=== PATIENT | male | born 1985 | race Caucasian/White ===

== ENCOUNTER 2020-01-02 00:14 | Outpatient (CLI) | payer OTHER, SELFPAY ==
[2020-01-02 10:36] LABS: Abs Immature Grans 0.01 k/cumm (0.0-0.09); Absolute Basophil Count 0.03 k/cumm (0.0-0.2); Absolute Eosinophil Count 0.16 k/cumm (0.0-0.7); Absolute Lymphocyte Count 2.25 k/cumm (1.2-3.4); Absolute Monocyte Count 0.53 k/cumm (0.11-0.7); Absolute Neutrophil Count 3.79 k/cumm (1.2-6.7); Basophils % 0.4; Eosinophils % 2.4; HCT 40.5 % (40.0-50.0); HGB 13.2 g/dL (13.5-17.5); Immature Grans % 0.1 %; Lymphocytes % 33.2; Mean Corp. HGB Concentration 32.6 g/dL (32.0-36.0); Mean Corpuscular Hemoglobin 28.3 pg (27.0-33.0); Mean Corpuscular Volume 86.9 fL (80-95); Mean Platelet Volume 9.8 fL (8.0-11.0); Monocytes % 7.8; Neutrophils % 56.1; Platelet Count 324 x1000/uL (130-400); RBC 4.66 m/cumm (4.50-6.00); RBC Distribution Width 14.3 % (11.8-14.1); White Blood Cell Count 6.77 k/cumm (4.4-10.8)
[2020-01-02 11:06] LABS: ALT 128 U/L (16-63); AST 73 U/L (15-37); Albumin 4.2 g/dL (3.4-5.0); Alkaline Phosphatase 110 U/L (46-116); Anion Gap 6.3 mmol/L (3-11); BUN 15 mg/dL (7-18); Bilirubin, Total 0.3 mg/dL (0.2-1.0); CO2 31.7 mmol/L (21.0-32.0); CREATININE 1.06 mg/dL (0.70-1.30); Calcium 9.5 mg/dL (8.5-10.1); Chloride 105 mmol/L (98-107); Glucose 79 mg/dL (74-106); Potassium 5.2 mmol/L (3.5-5.1); Sodium 143 mmol/L (136-145); Total Protein 7.8 g/dL (6.4-8.2)
[2020-01-05 10:14] LABS: HBs Antibody, Quant 15.6 mIU/mL (See Note); Hepatitis B Surface Ab Positive (See Note); Hepatitis B Surface Ag Negative (Negative)
[2020-01-05 10:49] LABS: Hep B Core Antibody Negative (Negative)
[2020-01-05 11:20] LABS: HIV-1/2 Ag & Ab Screen Negative (Negative)
[2020-01-05 12:03] LABS: Hep A Total Ab w Rflx IgM Positive (Negative)
[2020-01-06 09:16] LABS: Hep A Antibody IgM Negative (Negative)
== END 2020-01-02 00:34 ==
PROVIDERS: PCP Nurse Practitioner Family; Visit Provider Nurse Practitioner Adult Health
DX: B19.20 Unspecified viral hepatitis C without hepatic coma (principal); Z11.4 Encounter for screening for human immunodeficiency virus [HIV]
CPT/HCPCS: 36415; 80053; 86704; 86706; 86709; 86803; 87340; 87389; 85025; 87350; 87522

== ENCOUNTER 2021-01-14 02:20 | Inpatient (IN) | payer MEDICAID, SELFPAY ==
[2021-01-14] VITALS (59 sets, daily range): BP systolic 89–139; BP diastolic 49–116; PULSE 62–97; RESP 2–70; TEMP 35.1–36.4; O2SAT 70–98
--- NOTE | 2021-01-14 02:15 | RT.EKG_ITS ---
APPROVED REPORT Exam: Resting ECG Patient Location: E HR:86 bpm ECG Measurements Heart Rate 86 AXIS MO 146 P 73 QRSd 97 QRS 85 QT 388 T 64 QTc 464 Conclusion Sinus rhythm...normal P axis, V-rate 60- 99 Normal Intervals Normal QT Normal Electrocardiogram
--- NOTE | 2021-01-14 02:22 | ED.GENADUL_ITS ---
Discharge Plan Disposition Patient Disposition: [facility] INPATIENT Condition: Serious Discharge Details Clinical Impression: Opiate or related narcotic overdose, Aspiration pneumonitis Primary Care Provider: Edith Balderas ED Provider: Daryn Oreilly Home Meds and New Rx's Prescriptions: No Action No Known Home Meds RF: 0 Medical Decision Making Patient presenting after overdose of presumed methadone but unknown true make up of ingestion. Was unresponsive and did respond to Narcan but is still altered and somewhat paranoid. Lungs sound clear. Unable to maintain saturations with nasal cannula oxygen. Facemask applied. Laboratory studies ordered. Head CT for altered mental status and CTA chest for persistent low O2 saturations ordered. Due to presumed overdose with methadone which has a very long half- life will start a Narcan drip at 2 mg/h and titrate to effect. EKG is sinus rhythm with normal intervals and normal QT segment. 03:45 - Patient at this time remains arousable to stimuli but is otherwise calm and sleeping with normal respiratory status. Currently maintaining 90% saturation on nonrebreather facemask. CT head is negative for bleed. CTA chest negative for PE. Evidence of bilateral infiltrates which would explain patient's oxygenation and is likely related to aspiration pneumonitis during his unresponsive event. Laboratory studies with minimally elevated white count, elevated glucose, anion gap; likely all related to stress reaction and unresponsive event. Suspect will normalize on on. Will keep him n.p.o. We will continue Narcan drip at 2 mg/h. Will dose with Unasyn in hopes to prevent bacterial pneumonia from setting in. Case discussed with hospitalist. Patient to be admitted to ICU for further management. Lab Data Lab results reviewed: Yes I reviewed the patient's lab results. ECG Data Attestation: I personally reviewed and interpreted this ECG (s) as follows: Prior ECG tracings: not available for review Interpretation: see EKG HPI General Mode of arrival: EMS . Date/Time Provider Initiated Documentation: 01/14/21 02:22 . Limitations to Documentation: altered mental status . Information obtained by: EMS . HPI Narrative: Patient presents to ED by EMS after overdose on methadone. Patient recently released from residential. Partying tonight with friends. Took unknown amount of drug that was supposed to be methadone. Became unresponsive on the ground with labored breathing and frothing at the mouth. By report, friend started CPR as well as administered 4 mg of Narcan intranasally. Upon EMS arrival patient was awake and semiconversant. Unable to obtain IV access. Was awake throughout transport but repeatedly needs to be stimulated. No further Narcan given. Oxygen saturations despite nasal cannula oxygen remained in the 70s. Heart rate and blood pressure were fine. Patient arrives here awake but altered. Does not appear to be in distress. Does not answer questions easily and is unable to provide much in terms of his own history. He does have a known history of drug abuse. Related Data Home Medications Medication Instructions Recorded Confirmed Unknown [No Known Home Meds] 10/18/13 01/14/21 Allergies Allergy/AdvReac Type Severity Reaction Status Date / Time No Known Allergies Allergy Unverified 01/14/21 02:28 General Stated Complaint: OD/Poison VIVIANA: 2 Review of Systems Unobtainable due to mental status [facility] Medical History (Updated 01/14/21 @ 03:48 by Daryn Oreilly MD) Drug abuse Hepatitis C virus Social History Smoking/Tobacco Use Status: Current every day Tobacco Type: cigarettes Smoking risk assessment performed?: Yes Alcohol Intake: current Alcohol Intake frequency: 0-2 drinks per day Drug use: Daily Substance use type: marijuana and prescription drug Do you feel safe at home: Yes Exam Narrative Exam Narrative: Const: WDWN male in NAD. HEENT: NC/AT. Normal facial exam. Eyes: Tiny minimally reactive pupils. Neck: Supple. Trachea midline. Lungs: Good respiratory effort. Lungs are clear. Cor: RRR without murmur/gallop. Good radial pulses. GI: Soft. NT/ND. No guarding or rebound. Neuro: A+O x 2. Normal speech, delayed mentation. Cranial nerves II - XII grossly intact. No gross motor or sensory deficit. Ext: No C/C/E. Skin: Warm and dry without rash. Course Vital Signs Vital signs: Vital Signs Temperature 97.5 F L 01/14/21 02:16 Pulse 89 01/14/21 02:16 Respiratory Rate 70 H 01/14/21 02:16 Blood Pressure 131/79 01/14/21 02:16 Pulse Oximetry 70 L 01/14/21 02:16 Temperature 97.5 F L 01/14/21 02:16 Temperature Source Skin 01/14/21 02:16 Pulse 89 01/14/21 02:16 Respiratory Rate 70 H 01/14/21 02:16 Blood Pressure 131/79 01/14/21 02:16 Pulse Oximetry 70 L 01/14/21 02:16 Critical Care Time Critical Care Time Critical Care Time: Yes Total Critical Care Time: 60 Attestation: Upon my evaluation, this patient had a high probability of imminent or life- threatening deterioration, which required my direct attention, intervention, and personal management. I have personally provided 60 minutes of critical care time exclusive of time spent on separately billable procedures. Time includes review of laboratory data, radiology results, discussion with consultants, and monitoring for potential decompensation. Interventions were performed as documented above.
[2021-01-14] MEDS: Normal Saline 1,000 ML 150 ML IV (02:32)
[2021-01-14 02:43] LABS: Source Nasal/Nares
[2021-01-14 02:51] LABS: Abs Immature Grans 0.29 10^3/uL (0.0-0.06); Absolute Eosinophil Count 0.02 10^3/uL (0.0-0.7); Absolute Lymphocyte Count 0.64 10^3/uL (1.2-3.4); Absolute Monocyte Count 0.16 10^3/uL (0.1-0.8); Basophils % 0.2; Eosinophils % 0.2; HCT 47.1 % (40.0-50.0); HGB 14.8 g/dL (13.5-17.5); Immature Grans % 2.4; Lymphocytes % 5.3; MCH 29.8 pg (27.0-33.0); MCHC 31.4 % (32.0-36.0); MCV 94.8 fL (80-95); MPV 10.5 fL (8.0-11.0); Monocytes % 1.3; Neutrophils % 90.6; Nucleated RBC 0 %; Platelet Count 235 10^3/uL (130-400); RBC 4.97 10^6/uL (4.36-5.78); RDW 14.5 % (11.8-14.1); RDW-SD 50.5 fL; WBC 12.01 10^3/uL (4.4-10.8)
[2021-01-14 02:52] LABS: Absolute Basophil Count 0.02 10^3/uL (0.0-0.2); Absolute Neutrophil Count 10.88 10^3/uL (1.2-6.7)
[2021-01-14 02:53] LABS: ALT 108 U/L (16-63); AST 83 U/L (15-37); Albumin 3.3 g/dL (3.4-5.0); Alkaline Phosphatase 104 U/L (46-116); Anion Gap 14.6 mmol/L (3-11); BUN 11 mg/dL (7-18); Bilirubin, Total 0.4 mg/dL (0.2-1.0); CO2 25.4 mmol/L (21.0-32.0); CREATININE 1.8 mg/dL (0.70-1.30); Calcium 8.4 mg/dL (8.5-10.1); Chloride 96 mmol/L (98-107); Estimated GFR 42.67 (mL/min/1.73m2); Glucose 359 mg/dL (74-106); Magnesium 2.6 mg/dL (1.8-2.4); Potassium 4.5 mmol/L (3.5-5.1); Sodium 136 mmol/L (136-145); Total Protein 7.7 g/dL (6.4-8.2)
[2021-01-14 03:02] LABS: ETHANOL BLOOD < 3.0 mg/dL (<3)
[2021-01-14] MEDS: Omnipaque 350 MG/ML 100 ML BTL IJ (03:19)
[2021-01-14] MEDS: Normal Saline Flush 10 ML SYR IVP (03:19)
[2021-01-14] MEDS: Normal Saline - Diluent 50 ML VIAL IV (03:19)
--- NOTE | 2021-01-14 03:20 | DI.CT_ITS ---
EXAM: CT HEAD WO CLINICAL HISTORY: altered mental status. TECHNIQUE: Imaging Protocol: Axial computed tomography images with coronal and sagittal reformatted images were created and reviewed COMPARISON: No exams were available for comparison FINDINGS: Ventricles and Extra axial spaces: Normal in size and morphology for the patient's age. Hemorrhage: None. Cerebral parenchyma: Normal. Midline shift: None. Brainstem/Cerebellum: Normal. Calvarium: Normal. Visualized Paranasal sinuses/Mastoids: Opacification of both maxillary sinuses and a few ethmoid sinu ses. Clear mastoids. Soft Tissues: Unremarkable. IMPRESSION: Sinus disease. No acute intracranial process. RADIATION DOSE DELIVERED: 767.03mGy.cm Total DLP DATA REPOSITORY: All CT scans at this facility are submitted to the National Radiology Data Registry (NRDR) Dose Index Registry (DIR) with the [employer] (ACR). RADIATION OPTIMIZATION: All CT scans at this facility use at least one of these dose optimization te chniques: automated exposure control; mA and/or kV adjustment per patient size (includes targeted exa ms where dose is matched to clinical indication); or iterative reconstruction.
--- NOTE | 2021-01-14 03:20 | DI.CT_ITS ---
EXAM: CT CHEST PE CTA CLINICAL HISTORY: low oxygen saturations. TECHNIQUE: Imaging Protocol: CT angiography of the chest was performed using pulmonary embolus mary alice col. Multi planar reconstructions were performed. CONTRAST MATERIAL: Intravenous: Omnipaque 350 Contrast volume: 74 cc COMPARISON: No exams were available for comparison FINDINGS: CHEST: Images are degraded by significant respiratory motion artifact. PULMONARY ARTERIES: There are no intraluminal filling defects to suggest acute pulmonary emboli. LUNGS: There is extensive infiltrate throughout the left lung involving all lobes. No pleural effusi on. In the opposite-right lung there is patchy infiltrate at multiple levels but with less overall i nvolvement than the left lung. There are no pleural effusions on either side. No obstructing findin gs in the trachea and mainstem bronchi. MEDIASTINUM: There is no hilar nor mediastinal adenopathy. Visualized thyroid unremarkable. CARDIAC: Heart size is normal. There is no pericardial effusion.Caliber of the thoracic aorta is wit hin normal limits. There is no evidence of shift of the interventricular septum. PARTIALLY VISUALIZED UPPERMOST ABDOMEN: Hepatic steatosis. No obvious adrenal masses. OSSEOUS: No significant osseous lesions.. IMPRESSION: 1. Extensive infiltrate throughout the left lung and moderate infiltrate throughout the right lung. Presently no cavitation.No pleural effusions. No intrathoracic adenopathy. Findings may be related to aspiration, given the history here. Also recommend Covid testing. 2. No pulmonary emboli evident. 3. Hepatic steatosis noted. RADIATION DOSE DELIVERED: LINK-TO-SR Total DLP DATA REPOSITORY: All CT scans at this facility are submitted to the National Radiology Data Registry (NRDR) Dose Index Registry (DIR) with the [employer] (ACR). RADIATION OPTIMIZATION: All CT scans at this facility use at least one of these dose optimization te chniques: automated exposure control; mA and/or kV adjustment per patient size (includes targeted exa ms where dose is matched to clinical indication); or iterative reconstruction.
--- NOTE | 2021-01-14 03:29 | DI.VRAD_ITS ---
PROCEDURE INFORMATION: Exam: CT Angiography Chest With Contrast Exam date and time: 01/14/2021 3:03 AM Age: 35 years old Clinical indication: Other: Low o2, AMS TECHNIQUE: Imaging protocol: Computed tomographic angiography of the chest with contrast. 3D rendering (Not supervised by radiologist): MIP and/or 3D reconstructed images were created by the technologist. Radiation optimization: All CT scans at this facility use at least one of these dose optimization techniques: automated exposure control; mA and/or kV adjustment per patient size (includes targeted exams where dose is matched to clinical indication); or iterative reconstruction. Contrast material: [id number]; Contrast volume: 74 ml; Contrast route: INTRAVENOUS (IV); COMPARISON: No relevant prior studies available. FINDINGS: Pulmonary arteries: No central or definite pulmonary embolus on study limited due to respiratory motion. Aorta: Unremarkable. No aortic aneurysm. No aortic dissection. Lungs: Moderate bilateral nonspecific pulmonary infiltrates, possibly of infectious etiology. Pleural spaces: Unremarkable. No pneumothorax. No pleural effusion. Heart: Unremarkable. No cardiomegaly. No pericardial effusion. Lymph nodes: Unremarkable. No enlarged lymph nodes. Liver: Hepatic steatosis. Bones/joints: Unremarkable. No acute fracture. Soft tissues: Unremarkable. IMPRESSION: Moderate bilateral nonspecific pulmonary infiltrates, possibly of infectious etiology. Dictated and Authenticated by: José Miguel Jim MD. Ordering:LAURIE Stearns MD
--- NOTE | 2021-01-14 03:32 | DI.VRAD_ITS ---
PROCEDURE INFORMATION: Exam: CT Head Without Contrast Exam date and time: 01/14/2021 2:28 AM Age: 35 years old Clinical indication: Alteration of consciousness; Somnolence (drowsiness); Additional info: Low o2, AMS TECHNIQUE: Imaging protocol: Computed tomography of the head without contrast. Radiation optimization: All CT scans at this facility use at least one of these dose optimization techniques: automated exposure control; mA and/or kV adjustment per patient size (includes targeted exams where dose is matched to clinical indication); or iterative reconstruction. COMPARISON: No relevant prior studies available. FINDINGS: Brain: Normal. No hemorrhage. Unremarkable white matter. No mass effect. Cerebral ventricles: No ventriculomegaly. Bones/joints: Unremarkable. No acute fracture. Paranasal sinuses: Bilateral maxillary sinus disease , clinically exclude acute sinusitis. Mastoid air cells: Visualized mastoid air cells are well aerated. Soft tissues: Unremarkable. IMPRESSION: 1. Bilateral maxillary sinus disease , clinically exclude acute sinusitis. 2. No acute intracranial finding. Dictated and Authenticated by: José Miguel Jim MD. Ordering:LAURIE Stearns MD
[2021-01-14] MEDS: AMPICILLIN/SULBACTAM 3 GM in Normal Saline 100 ML IVPB ×2 (03:55→10:25)
[2021-01-14 04:05] LABS: Salicylate 3.5 mg/dL (<2.8)
[2021-01-14 04:07] LABS: Acetaminophen < 2 ug/mL (10-30)
--- NOTE | 2021-01-14 05:27 | W.PM.HP.N ---
Date of service: 01/14/21 Time of Service: 05:27 Assessment and Plan Assessment and plan (1) Opiate or related narcotic overdose: Status: Acute Assessment and plan: Patient's history and presentation is very consistent with opioid overdose. In fact opioid overdose the setting of recent incarceration in a patient with previous tolerance is a common and predictable scenario. Fortunately he was resuscitated and is currently on naloxone drip and his mental status has improved since presentation. His hypothermia is common with opioid overdose, continue to monitor. He feels hot and is thus resistant to warming. UDS pending to confirm methadone and assess for other drugs. EKG is reassuring that he is not experiencing cardiac toxicity of methadone. Given loss of tolerance even relatively small doses of methadone could have caused this overdose, so we are unlikely to see the prolonged QT that we see with high dose methadone in opioid tolerant patients. Hyperglycemia likely related to stress hormones, get A1c if sugars staying high. His mental status is improving so I am going to let him eat. See below. (2) Aspiration pneumonitis: Status: Acute Assessment and plan: His lung findings may represent aspiration pneumonititis, I agree with covering with Amp/sulbactam as a precaution. I think we can discontinue this when he starts feeling better. The lung findings may also represent early ARDS, which can be a complication of rapid opioid reversal. His oxygenation seems to be improving already, however, so I am hopeful he will avoid this complication. (3) Drug abuse: Status: Acute Assessment and plan: Patient states he has a history of medically assisted treatment for opioid use disorder. He denies daily use since being released from incarceration in [place] 2 weeks ago. Medically assisted treatment in jails and prisons has been shown to decrease post-release overdose and , but is not offered in [place] as it is in [place] corrections. I encouraged Hipolito to consider medically assisted treatment as an option to stabilize his life and decrease risk of overdose. He isn't sure he needs it, but will consider. He should be at least given nasal narcan upon discharge and offered recovery coaching. (4) Hepatitis C virus: Status: Chronic Assessment and plan: Known chronic hepatitis C, with some transaminitis currently. No EtOH. I suggested he follow up with me to consider treatment upon discharge. I offered rescreening for HIV and HBV, which we will do with the next labs. (5) Acute kidney injury: Status: Acute Assessment and plan: In setting of hypoxia from opioid overdose. Multiple drug adulterants can also cause kidney damage. Will add CPK, though he was not down for a long time per history. Monitor. (6) Smoker: Status: Acute Assessment and plan: Declines NRT for now. encourage cessation intermediate. (7) DVT prophylaxis: Status: Acute Assessment and plan: LMWH until he is up and walking, at which point we can discontinue. (8) Discharge planning issues: Status: Acute Assessment and plan: He is ICU status on a naloxone drip. He is PUI for COVID-19 given cough and high risk exposure (has no history of known infection or vaccine). History of Present Illness History of Present Illness Chief Complaint: overdose Narrative: 35 yo man with history of opioid use disorder who was recently released from a correctional facility in [place] presented to ED by EMS after presumed overdose on methadone. Was partying tonight with friends and took unknown amount of drug that was supposed to be methadone. Became unresponsive on the ground with labored breathing and frothing at the mouth. By report, friend started CPR as well as administered 4 mg of Narcan intranasally. Upon EMS arrival patient was awake and semiconversant. Was awake throughout transport but repeatedly needs to be stimulated. No further Narcan given until he arrived in the ED, though oxygen saturations remained in the 70s until in the ED. Hipolito can now tell me he took liquid methadone about 10pm on the evening prior to admission. He denies using other substances. He drank the liquid. No snorting or injecting. He had used opioids 1-2 times since release about 2 weeks ago, not daily and not methadone until now. He had been treated with buprenorphine in past but not recently. He didn't knowingly take other medication like benzodiazepines. His last IVDU was about a year ago. He did not have any respiratory symptoms before this episode. Currently he feels hot and short of breath, with a dry cough that is worse with taking a deep breath. He doesn't feel withdrawal symptoms like body aches, abdominal cramps, nauesea, or diarrhea. Review of Systems Constitutional Constitutional: Denies anorexia (hungry), Denies body ache(s), Reports excessive sweating, Denies fever(s), Denies headache(s) and Denies weakness Eyes Eyes: Denies change in vision, Denies diplopia and Denies irritation ENT Ears, Nose, Mouth, and Throat: Denies dizziness, Denies headache(s), Denies nasal congestion and Denies sore throat Cardiovascular Cardiovascular: Denies chest pain, Denies palpitations and Denies orthopnea Respiratory Respiratory: Reports as per HPI, Reports cough, Reports hemoptysis (pink sputum per nursing), Denies excessive phlegm production and Reports pain with cough Gastrointestinal Gastrointestinal: Denies abdominal pain, Denies heartburn, Denies diarrhea, Denies loose stools, Denies nausea and Denies vomiting Genitourinary Genitourinary: Denies hematuria, Denies dysuria and Denies urinary incontinence Comments: hasn't urinated yet Musculoskeletal Musculoskeletal: Denies arthralgias and Denies joint swelling Integumentary/Breasts Skin/Breast: Denies rash and Denies skin ulcer Neurologic Neurologic: Denies dizziness, Denies headache(s), Denies seizure-like activity, Denies sensory deficit and Denies weakness Psychiatric Psychiatric: Denies mood swings and Denies panic attacks Endocrine Endocrine: Reports excessive sweating and Denies palpitations Hematologic/Lymphatic Hematologic/Lymphatic: Denies easy bleeding and Denies lymphadenopathy ON LICENSE OF [facility] Medical History Drug abuse Hepatitis C virus Social History (Updated 01/14/21 @ 06:33 by Mariusz Matos) Smoking/Tobacco Use Status: Current every day Tobacco Type: cigarettes Smoking risk assessment performed?: Yes Alcohol Intake: current Alcohol Intake frequency: 0-2 drinks per day Details: none prior to admission Drug use: Daily Substance use type: marijuana and prescription drug Do you feel safe at home: Yes Additional Social history: living with a friend in [facility] since being released from corrections in [place] in early December 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 Meds Home Medications and Allergies Allergies Allergy/AdvReac Type Severity Reaction Status Date / Time No Known Allergies Allergy Unverified 01/14/21 02:28 Home Medications Medication Instructions Recorded Confirmed Type Unknown [No Known Home Meds] 10/18/13 01/14/21 History Exam Narrative Exam Narrative: GEN: Alert and oriented x 3, pleasent and cooperative with me, though appears anxious. He was able to give linear history before overdose. Mild respiratory distress at rest. HEENT: Head atraumatic. Conjunctiva clear, no icterus. Pupils currently 4-5mm in dark room, reactive shar, EOMI. Mild rhinorrhea and frequent sneezing. MMM, OP benign but he has several large dental caries. Neck is supple with no masses or lymphadenopathy, trachea midline LUNGS: Diffusely poor air movement, mild increase respiratory effort even lying in bed, dry cough. No focal rales or wheezing. CV: RRR with no murmurs, gallops, or rubs. ABD: +BS, soft, NT/ND. no organomegaly EXT: no cyanosis, clubbing, or edema. Leg not tender to palpation. MSK: No joint redness or swelling NEURO: CN 2-12 grossly intact. Normal movement of 4 extremities. Normal speech and coordination SKIN: Skin clammy and warm, feet a little cooler. No rashs or open wounds. PSYCH: mildly anxious mood and affect, normal thought process, no hallucinations evident. Results Imaging CT scan - chest: report reviewed (Moderate bilateral nonspecific pulmonary infiltrates, possibly of infectious etiology.) Imaging Studies: CT Head w/o contrast: 1. Bilateral maxillary sinus disease , clinically exclude acute sinusitis. 2. No acute intracranial finding. Labs Result diagrams: 01/14/21 02:20 01/14/21 02:20 Labs: Laboratory Results - last 24 hr 01/14/21 01/14/21 01/14/21 02:20 02:20 02:20 WBC 12.01 H RBC 4.97 Hgb 14.8 Hct 47.1 MCV 94.8 MCH 29.8 MCHC 31.4 L RDW 14.5 H Plt Count 235 MPV 10.5 Immature Gran % 2.4 Neutrophils % 90.6 Lymphocytes % 5.3 Monocytes % 1.3 Eosinophils % 0.2 Basophils % 0.2 Nucleated RBC % 0 Absolute Neutrophils 10.88 H Absolute Lymphocytes 0.64 L Absolute Monocytes 0.16 Absolute Eosinophils 0.02 Absolute Basophils 0.02 Sodium 136 Potassium 4.5 Chloride 96 L Carbon Dioxide 25.4 Anion Gap 14.6 H BUN 11 Creatinine 1.8 H Estimated GFR/1.73 m2 42.67 Glucose 359 H Calcium 8.4 L Magnesium 2.6 H Total Bilirubin 0.4 AST 83 H ALT 108 H Alkaline Phosphatase 104 Total Protein 7.7 Albumin 3.3 L Salicylates Acetaminophen Ethyl Alcohol < 3.0 COVID-19 Source 01/14/21 01/14/21 02:20 02:25 WBC RBC Hgb Hct MCV MCH MCHC RDW Plt Count MPV Immature Gran % Neutrophils % Lymphocytes % Monocytes % Eosinophils % Basophils % Nucleated RBC % Absolute Neutrophils Absolute Lymphocytes Absolute Monocytes Absolute Eosinophils Absolute Basophils Sodium Potassium Chloride Carbon Dioxide Anion Gap BUN Creatinine Estimated GFR/1.73 m2 Glucose Calcium Magnesium Total Bilirubin AST ALT Alkaline Phosphatase Total Protein Albumin Salicylates 3.5 Acetaminophen < 2 Ethyl Alcohol COVID-19 Source Nasal/nares Last Vital Signs Temp 36.4 C L 01/14/21 02:16 Pulse 74 01/14/21 04:46 Resp 30 H 01/14/21 04:46 BP 98/56 L 01/14/21 04:46 Pulse Ox 95 01/14/21 04:46 COVID- Screening Have you, or household traveled for leisure in last 14 days?: No
[2021-01-14 06:56] LABS: *AMPHETAMINES SCREEN URINE Negative (Negative); *BARBITURATES SCREEN URINE Negative (Negative); *BENZODIAZEPINES SCREEN URINE Negative (Negative); Cannabinoids THC POSITIVE (Negative); Cocaine Screen,Urine Negative (Negative); METHADONE URINE SCREEN POSITIVE (Negative); OPIATES URINE SCREEN Negative (Negative)
[2021-01-14 06:57] LABS: Tricyclic Antidepressants Negative (Negative)
[2021-01-14] MEDS: Enoxaparin 40 MG/0.4 ML SYR SC (08:10)
[2021-01-14 10:26] LABS: COVID-19 PCR Negative (Negative)
[2021-01-14 10:34] LABS: COVID-19 PCR Negative (Negative)
[2021-01-14] MEDS: Albuterol 2.5 MG/3 ML INH SOLN VIAL UPD ×2 (11:02→14:50)
--- NOTE | 2021-01-14 11:16 | INITIAL_ITS ---
- If Service Date Differs Date of service: 01/14/21 Time of Service: 11:16 Care Management Initial Assess REASON FOR HOSPITALIZATION:: Narcotic overdose amd aspiration pneumonia PAST MEDICAL HISTORY/PAST SURGICAL HISTORY:: Medical History . Drug abuse. Hepatitis C virus PREVIOUS FUNCTIONAL STATUS/SOCIAL/FAMILY SUPPORTS:: Basil lives in [place], [place]. CURRENT FUNCTIONAL STATUS:: Basil was sitting up in bed preparing to be discharged when CM met with him. He denied the need for any services. Basil shared that he had just gotten out of long term and celebrated [facility] [facility] Day by taking drugs. He admitted that it was a poor decision and not to be repeated. ADVANCE DIRECTIVES:: none on file Has patient been provided with info about the portal/API?: Yes Did the patient sign up for the portal?: No CODE STATUS:: Full Code INSURANCE COVERAGE / FINANCIAL ISSUES:: Medicaid CURRENT HOME/COMMUNITY SERVICES/EQUIPMENT:: none PRIMARY CARE PHYSICIAN:: Edith Balderas POTENTIAL DISCHARGE NEEDS:: Follow up with PCP and discharge plan of care PATIENT/FAMILY EDUCATION NEEDS:: Discharge plan, limitations, follow up plan [facility] [employer] TRANSPORTATION:: via private vehicle with friend/family member PLAN:: Basil will be discharged home with no services. He will follow up with community providers and transport with a friend.
[2021-01-14] MEDS: methylPREDNISolone SUCC 125 MG VIAL 60 MG IVP (11:56)
[2021-01-14 14:02] LABS: Creatine Kinase 285 U/L (39-308)
--- NOTE | 2021-01-14 14:44 | DSE_ITS ---
Date of service: 01/14/21 Time of Service: 14:46 DS: Diagnosis Discharge Diagnosis (1) Opiate or related narcotic overdose: Status: Acute (2) Aspiration pneumonitis: Status: Acute (3) Drug abuse: Status: Acute (4) Hepatitis C virus: Status: Chronic (5) Acute kidney injury: Status: Acute (6) Smoker: Status: Acute (7) DVT prophylaxis: Status: Acute (8) Discharge planning issues: Status: Acute Discharge Plan Disposition Patient Disposition: HOME Condition: Improving Discharge Details Reason For Visit: OPIATE OVERDOSE; ASPIRATION PNEUMONITIS Admit Date/Time: 01/14/21 03:41 Admit Provider: Mariusz Matos Attending Provider: Mariusz Matos [facility] Hospital Course: 35 yo man with history of opioid use disorder who was recently released from a correctional facility in [place]. He presented to ED by EMS after presumed overdose on methadone. Was partying with friends and took unknown amount of drug that was supposed to be methadone. He believes it was 80mg. Became unresponsive on the ground with labored breathing and frothing at the mouth. By report, friend started CPR as well as administered 4 mg of Narcan intranasally. Upon EMS arrival patient was awake and semiconversant. Was awake throughout transport but repeatedly needs to be stimulated. No further Narcan given until he arrived in the ED, though oxygen saturations remained in the 70s until in the ED. He was later able to tell the admitting hospitalist that he took liquid methadone about 10pm on the evening prior to admission. He believes it was 80mg but wasn't certain. He denied using other substances. He drank the liquid. No snorting or injecting. He had used opioids 1-2 times since release about 2 weeks ago, not daily and not methadone until now. He had been treated with buprenorphine in past but not recently. He didn't knowingly take other medication like benzodiazepines. His last IVDU was about a year ago. He did not have any respiratory symptoms before this episode. His WBC count was 12.01. creatinine 1.8. IV fluids given. Glucose 359. AST 83, ALT 108. CK 285. CT head w/o acute findings. CT chest with moderate bilateral nonspecific pulmonary infiltrates. At time of admission to the ICU he felt hot and short of breath, with a dry cough that is worse with taking a deep breath. No withdrawal symptoms like body aches, abdominal cramps, nausea, or diarrhea. EKG was reassuring. Overnight he remained on a Narcan drip. He was started on IV Unasyn for aspiration pneumonitis. The following AM he became more awake and alert and the Narcan drip was stopped. His respiratory status improved. He was given a dose of 60mg IV methylprednisolone. He was weaned from supplemental oxygen. His O2 saturations remained above 88%; Mostly in the low 90's with rest and ambulation. Fingerstick blood glucose of 155 before d/c; had received IV solumedrol several hours prior to this reading. He will d/c on prednisone 20mg daily for 5 doses. Augmentin 875mg po BID for 7 days. Avoidance of illicit use of drugs and smoking cessation encouraged. PCP follow up in 1-2 weeks. Home Meds and New Rx's Prescriptions: New amoxicillin-pot clavulanate [Augmentin] 875-125 mg tablet 1 tab PO BID Qty: 10 RF: 0 prednisone 20 mg tablet 20 mg PO DAILY Qty: 5 RF: 0 Discharge Instructions Instructions: Pneumonia (DC) Stand Alone Forms: Nursing Discharge Form Referrals: Mariusz Matos [ [facility] STAFF PHYSICIAN] - 01/24/21 11:40 am Activity:: Activity as Tolerated Equipment/Supplies:: No Equipment Needed Diet:: Normal Diet Discharge Orders Discharge Orders: Discharge Order (Routine); Ordered 01/14/21 Ordered By: Carlitos Choe DS: Summary Time Spent with Patient providing and/or coordinating discharge services: Greater than 30 minutes Status at Discharge Functional status at discharge: independent ambulation Overall status at discharge: patient is progressing back to baseline Mental Status: mental status grossly normal Speech and Movement: speech and movement normal Mood: congruent mood Affect: blunted Exam Psych Mental Status: mental status grossly normal Speech and Movement: speech and movement normal Mood: congruent mood Affect: blunted DS: Data Vitals/I&O Vitals and I&O: Vital Signs Temperature 36 C L 01/14/21 14:31 Temperature Source Temporal Artery Scan 01/14/21 11:43 Pulse 94 H 01/14/21 14:31 Pulse 62 01/14/21 14:20 Respiratory Rate 19 01/14/21 14:31 Respiratory Effort 01/14/21 11:43 Respiratory Depth Shallow 01/14/21 11:43 Respiratory Pattern Normal 01/14/21 11:43 Blood Pressure 100/70 01/14/21 14:31 Blood Pressure Mean 74 01/14/21 11:38 Blood Pressure Position Supine 01/14/21 07:45 Pulse Oximetry 97 01/14/21 14:31 Oxygen Delivery Method Nasal Cannula 01/14/21 11:43 Oxygen Flow Rate 0 01/14/21 11:43 Pain Level 0 01/14/21 14:31 Comment 01/14/21 14:31 Intake & Output 01/13/21 01/14/21 01/14/21 23:59 11:59 23:59 Intake Total 1301.333 / 1301.333 Output Total 500 / 500 Balance 801.333 / 801.333 Weight 76.8 kg Intake: IV 961.333 / 961.333 Oral 340 / 340 Output: Urine 500 / 500 Other: Urine Color Light Ame Urine Appearance Clear Urine Odor Strong Comment No void at this time. Data Completed and Pending Labs on day of discharge: Labs from last 24 hours 01/14/21 01/14/21 01/14/21 Unknown 12:20 09:42 WBC RBC Hgb Hct MCV MCH MCHC RDW Plt Count MPV Immature Gran % Neutrophils % Lymphocytes % Monocytes % Eosinophils % Basophils % Nucleated RBC % Absolute Neutrophils Absolute Lymphocytes Absolute Monocytes Absolute Eosinophils Absolute Basophils Sodium Potassium Chloride Carbon Dioxide Anion Gap BUN Creatinine Estimated GFR/1.73 m2 Glucose Calcium Magnesium Total Bilirubin AST ALT Alkaline Phosphatase Creatine Kinase 285 Total Protein Albumin Salicylates Urine Opiates Screen Urine Methadone Screen Acetaminophen Ur Barbiturates Screen Ur Tricyclics Screen Ur Amphetamines Screen U Benzodiazepines Scrn Urine Cocaine Screen Ur THC Screen Ethyl Alcohol COVID-19 Source Nasopharyx SARS-CoV-2 (PCR) Negative Hep Bs Antigen HIV 1&2 Ag/Ab, 4th Gen Pending 01/14/21 01/14/21 01/14/21 06:39 06:15 02:25 WBC RBC Hgb Hct MCV MCH MCHC RDW Plt Count MPV Immature Gran % Neutrophils % Lymphocytes % Monocytes % Eosinophils % Basophils % Nucleated RBC % Absolute Neutrophils Absolute Lymphocytes Absolute Monocytes Absolute Eosinophils Absolute Basophils Sodium Potassium Chloride Carbon Dioxide Anion Gap BUN Creatinine Estimated GFR/1.73 m2 Glucose Calcium Magnesium Total Bilirubin AST ALT Alkaline Phosphatase Creatine Kinase Total Protein Albumin Salicylates Urine Opiates Screen Negative Urine Methadone Screen Positive A Acetaminophen Ur Barbiturates Screen Negative Ur Tricyclics Screen Negative Ur Amphetamines Screen Negative U Benzodiazepines Scrn Negative Urine Cocaine Screen Negative Ur THC Screen Positive A Ethyl Alcohol COVID-19 Source Nasal/nares SARS-CoV-2 (PCR) Negative Hep Bs Antigen Pending HIV 1&2 Ag/Ab, 4th Gen 01/14/21 01/14/21 01/14/21 02:20 02:20 02:20 WBC 12.01 H RBC 4.97 Hgb 14.8 Hct 47.1 MCV 94.8 MCH 29.8 MCHC 31.4 L RDW 14.5 H Plt Count 235 MPV 10.5 Immature Gran % 2.4 Neutrophils % 90.6 Lymphocytes % 5.3 Monocytes % 1.3 Eosinophils % 0.2 Basophils % 0.2 Nucleated RBC % 0 Absolute Neutrophils 10.88 H Absolute Lymphocytes 0.64 L Absolute Monocytes 0.16 Absolute Eosinophils 0.02 Absolute Basophils 0.02 Sodium Potassium Chloride Carbon Dioxide Anion Gap BUN Creatinine Estimated GFR/1.73 m2 Glucose Calcium Magnesium Total Bilirubin AST ALT Alkaline Phosphatase Creatine Kinase Total Protein Albumin Salicylates 3.5 Urine Opiates Screen Urine Methadone Screen Acetaminophen < 2 Ur Barbiturates Screen Ur Tricyclics Screen Ur Amphetamines Screen U Benzodiazepines Scrn Urine Cocaine Screen Ur THC Screen Ethyl Alcohol < 3.0 COVID-19 Source SARS-CoV-2 (PCR) Hep Bs Antigen HIV 1&2 Ag/Ab, 4th Gen 01/14/21 02:20 WBC RBC Hgb Hct MCV MCH MCHC RDW Plt Count MPV Immature Gran % Neutrophils % Lymphocytes % Monocytes % Eosinophils % Basophils % Nucleated RBC % Absolute Neutrophils Absolute Lymphocytes Absolute Monocytes Absolute Eosinophils Absolute Basophils Sodium 136 Potassium 4.5 Chloride 96 L Carbon Dioxide 25.4 Anion Gap 14.6 H BUN 11 Creatinine 1.8 H Estimated GFR/1.73 m2 42.67 Glucose 359 H Calcium 8.4 L Magnesium 2.6 H Total Bilirubin 0.4 AST 83 H ALT 108 H Alkaline Phosphatase 104 Creatine Kinase Total Protein 7.7 Albumin 3.3 L Salicylates Urine Opiates Screen Urine Methadone Screen Acetaminophen Ur Barbiturates Screen Ur Tricyclics Screen Ur Amphetamines Screen U Benzodiazepines Scrn Urine Cocaine Screen Ur THC Screen Ethyl Alcohol COVID-19 Source SARS-CoV-2 (PCR) Hep Bs Antigen HIV 1&2 Ag/Ab, 4th Gen [facility] Medical History Drug abuse Hepatitis C virus Social History Smoking/Tobacco Use Status: Current every day Tobacco Type: cigarettes Smoking risk assessment performed?: Yes Alcohol Intake: current Alcohol Intake frequency: 0-2 drinks per day Details: none prior to admission Drug use: Daily Substance use type: marijuana and prescription drug Do you feel safe at home: Yes Additional Social history: living with a friend in [facility] since being released from corrections in [place] in early December 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
--- NOTE | 2021-01-14 17:21 | PDOC.CMDIS ---
- If Service Date Differs Date of service: 01/14/21 Time of Service: 17:21 LACE Index Scoring Tool - Questions: Length of Stay (in days): 1 Acuity (Admit via E.D.?): Yes E.D. Visits: 1 - Answers: Total Score: 5 Risk of Readmission: Low Risk Care Management Discharge Reason for Hospitalization: Narcotic overdose amd aspiration pneumonia Discharge Plan: Basil will be discharged home with no services. He will follow up with community providers and transport with a friend. Patient/Family Education Needs: Discharge plan, limitations, follow up plan Ask Me Three
[2021-01-17 11:12] LABS: Hepatitis B Surface Ag Negative (Negative)
[2021-01-17 11:35] LABS: HIV-1/2 Ag & Ab Screen Negative (Negative)
== END 2021-01-14 15:37 | disposition home or self-care (01) | DRG 917 ==
LOC: ER 03:58 → ICU 04:23
PROVIDERS: Family Medicine; Admitting Provider Family Medicine; Emergency Provider Emergency Medicine; PCP Nurse Practitioner Family; Visit Provider Family Medicine
DX: T40.601A Poisoning by unspecified narcotics, accidental (unintentional), initial encounter (principal); J69.0 Pneumonitis due to inhalation of food and vomit; N17.9 Acute kidney failure, unspecified; F17.210 Nicotine dependence, cigarettes, uncomplicated; F19.10 Other psychoactive substance abuse, uncomplicated; B18.2 Chronic viral hepatitis C
CPT/HCPCS: 36415; 71275; 80053; 80307; 82550; 87340; 87389; 87635; 93005; 96361; 96365; 96375; 99223; 99239; 99291; J1650; 70450; 80320; 80329; 83735; 85025; 93010; 94640; J0295; J2310; J2930; J3490; J7613

== ENCOUNTER 2021-11-26 09:24 | Emergency (ER) | payer MEDICAID, SELFPAY ==
[2021-11-26] VITALS (16 sets, daily range): BP systolic 132–164; BP diastolic 74–96; PULSE 40–74; RESP 16–31; TEMP 36.9–37.2; O2SAT 98–100
--- NOTE | 2021-11-26 10:00 | RT.EKG_ITS ---
APPROVED REPORT Exam: Resting ECG Reason for Exam: bradycardia Patient Location: E HR:56 bpm ECG Measurements Heart Rate 56 AXIS WA 164 P 72 QRSd 97 QRS 82 QT 419 T 82 QTc 400 Conclusion Sinus bradycardia...rate< 60 Atrial premature complex...SV complex w/ short R-R interval
--- NOTE | 2021-11-26 10:27 | ED.GENADUL_ITS ---
Discharge Plan Disposition Patient Disposition: HOME Condition: Stable Discharge Details Clinical Impression: COVID-19, Opioid withdrawal, Bradycardia Primary Care Provider: Edith Balderas ED Provider: Lorenzo Tucker Home Meds and New Rx's Prescriptions: No Action No Known Home Meds RF: 0 Discharge Instructions Instructions: COVID-19 (Coronavirus Disease 2019) (ED) Additional Instructions: You are Covid positive and per recent CDC guidelines you should remain quarantine as long as you are symptomatic. If after 5 days you are asymptomatic you may stop quarantine but should wear a mask at all times when around others. Please stay well-hydrated and get plenty of rest and if you become short of breath, have difficulty breathing, or severe worsening of symptoms feel free to return to the emergency department. It was noted today at rest and you become bradycardic. At this time your labs and work-up are otherwise unremarkable but if you become symptomatic (which includes lightheadedness, dizziness, fainting, or irregular heartbeat) please return immediately to the emergency department for reassessment. Discharge Data Discharge Date/Time-TO BE ENTERED AT DEPARTURE: 11/26/21 15:26 Medical Decision Making Patient presenting to the emergency department with nausea vomiting and loose stools that has been going on for 2 days. Patient states that he last had methadone 3 weeks ago and last had heroin 2 days ago. Patient denies chest pain, shortness of breath, cough or fever but does state significant chills. Patient is unvaccinated and denies any known contact with known positive Covid. Plan to check labs given patient's reported homelessness and symptoms with concern of possible dehydration. Cows score for Opiate withdrawl is 10=mild withdrawl. Patient was bradycardic at arrival is not Hypothermic, denies any symptoms consistent with bradycardia, denies any other medication use, and with activity patient does have heart rate that returns to -70s to 80s. EKG reviewed with attending physician and please see documented dictation for results sinus bradycardia with otherwise nondiagnostic Review of labs is nonworrisome and otherwise nondiagnostic for patient's complaint. Of notation is that patient is mildly anemic but has had similar results in the past. Patient is Covid positive which I feel is a bigger contributor to patient's symptoms then withdrawal. Given patient's homelessness and Covid positive I did make multiple attempts with care management plan state 211 services to find alternative housing for patient but unfortunate was unsuccessful due to patient's transportation issues and only available motel is in [place]. Patient states that he does not haveanyone that can help. Given that patient is otherwise stable with no worrisome findings I do feel that he is safe for discharge and outpatient therapy but did discuss return precautions given that he has Covid positive and at high risk for severe illness given homelessness and unvaccinated status. Patient reports to me that he does not really want to restart methadone and may go back to [facility] with fianc? but is unsure. livestock judging coach was contacted during visit and did discuss possible recovery resources with patient. After discussion of diagnosis and plan of care patient has no further needs, questions, or concerns and states clear understanding to return to the emergency department for any worsening symptoms. Lab Data Lab results reviewed: Yes I reviewed the patient's lab results. Labs: Laboratory Tests Range/Units 11/26/21 11/26/21 11/26/21 10:15 10:50 10:50 WBC (4.4-10.8) 10^3/uL 8.90 RBC (4.36-5.78) 10^6/uL 4.95 Hgb (13.5-17.5) g/dL 13.4 L Hct (40.0-50.0) % 42.5 MCV (80-95) fL 85.9 MCH (27.0-33.0) pg 27.1 MCHC (32.0-36.0) % 31.5 L RDW (11.8-14.1) % 14.7 H Plt Count (130-400) 10^3/uL 412 H MPV (8.0-11.0) fL 10.0 Immature Gran % 0.3 Neutrophils % 83.1 Lymphocytes % 13.6 Monocytes % 2.9 Eosinophils % 0.0 Basophils % 0.1 Nucleated RBC % % 0 Absolute Neutrophils (1.2-6.7) 10^3/uL 7.39 H Absolute Lymphocytes (1.2-3.4) 10^3/uL 1.21 Absolute Monocytes (0.1-0.8) 10^3/uL 0.26 Absolute Eosinophils (0.0-0.7) 10^3/uL 0.00 Absolute Basophils (0.0-0.2) 10^3/uL 0.01 Sodium (136-145) mmol/L 138 Potassium (3.5-5.1) mmol/L 3.5 Chloride (98-107) mmol/L 101 Carbon Dioxide (21.0-32.0) mmol/L 27.5 Anion Gap (3-11) mmol/L 9.5 BUN (7-18) mg/dL 12 Creatinine (0.70-1.30) mg/dL 0.9 Estimated GFR/1.73 m2 (mL/min/1.73m2) >= 60.00 Glucose (74-106) mg/dL 169 H Calcium (8.5-10.1) mg/dL 9.4 Magnesium (1.8-2.4) mg/dL 2.0 Total Bilirubin (0.2-1.0) mg/dL 0.3 AST (15-37) U/L 26 ALT (16-63) U/L 30 Alkaline Phosphatase (46-116) U/L 111 Troponin I (<or=60) ng/L < 50 Total Protein (6.4-8.2) g/dL 8.9 H Albumin (3.4-5.0) g/dL 3.7 Lipase (73-393) U/L 62 TSH (0.36-3.74) uIU/mL Free T4 (0.76-1.46) ng/dL COVID-19 Source Nasopharynx SARS-CoV-2 (PCR) (Negative) POSITIVE A* Influenza Type A (PCR) (Negative) Negative Influenza Type B (PCR) (Negative) Negative RSV (PCR) (Negative) Negative Range/Units 11/26/21 10:50 WBC (4.4-10.8) 10^3/uL RBC (4.36-5.78) 10^6/uL Hgb (13.5-17.5) g/dL Hct (40.0-50.0) % MCV (80-95) fL MCH (27.0-33.0) pg MCHC (32.0-36.0) % RDW (11.8-14.1) % Plt Count (130-400) 10^3/uL MPV (8.0-11.0) fL Immature Gran % Neutrophils % Lymphocytes % Monocytes % Eosinophils % Basophils % Nucleated RBC % % Absolute Neutrophils (1.2-6.7) 10^3/uL Absolute Lymphocytes (1.2-3.4) 10^3/uL Absolute Monocytes (0.1-0.8) 10^3/uL Absolute Eosinophils (0.0-0.7) 10^3/uL Absolute Basophils (0.0-0.2) 10^3/uL Sodium (136-145) mmol/L Potassium (3.5-5.1) mmol/L Chloride (98-107) mmol/L Carbon Dioxide (21.0-32.0) mmol/L Anion Gap (3-11) mmol/L BUN (7-18) mg/dL Creatinine (0.70-1.30) mg/dL Estimated GFR/1.73 m2 (mL/min/1.73m2) Glucose (74-106) mg/dL Calcium (8.5-10.1) mg/dL Magnesium (1.8-2.4) mg/dL Total Bilirubin (0.2-1.0) mg/dL AST (15-37) U/L ALT (16-63) U/L Alkaline Phosphatase (46-116) U/L Troponin I (<or=60) ng/L Total Protein (6.4-8.2) g/dL Albumin (3.4-5.0) g/dL Lipase (73-393) U/L TSH (0.36-3.74) uIU/mL 0.20 L Free T4 (0.76-1.46) ng/dL 1.26 COVID-19 Source SARS-CoV-2 (PCR) (Negative) Influenza Type A (PCR) (Negative) Influenza Type B (PCR) (Negative) RSV (PCR) (Negative) HPI General Mode of arrival: ambulatory . Date/Time Provider Initiated Documentation: 11/26/21 09:28 . Limitations to Documentation: no limitations . Information obtained by: patient . History of Present Illness 36 year old M presents to the emergency department with the chief complaint of chills, n/v/d, opiate withdrawal, described as moderate and similar to prior episodes, Quality is described as aching (genral), Patient reports no radiation. Patient started experiencing this day(s) (2) and it has been constant. No relieving factors improve symptom(s), Other factors that worsen symptoms (Opiate withdrawal) . Patient notes no other symptoms.. Patient did receive the following treatments prior to arrival, none Related Data Home Medications Medication Instructions Recorded Confirmed Unknown [No Known Home Meds] 11/26/21 11/26/21 Allergies Allergy/AdvReac Type Severity Reaction Status Date / Time No Known Allergies Allergy Unverified 11/26/21 09:36 General Stated Complaint: DrugWithdr/MAT VIVIANA: 2 Review of Systems Constitutional Constitutional: Reports chills, Reports fatigue, Denies headache(s) and Reports malaise ENT Ears, Nose, Mouth, and Throat: Denies dizziness, Denies headache(s), Denies nasal congestion and Denies sore throat Cardiovascular Cardiovascular: Denies chest pain and Denies syncope Respiratory Respiratory: Denies chest congestion and Denies cough Gastrointestinal Gastrointestinal: Reports as per HPI, Reports abdominal pain, Reports diarrhea and Reports nausea Musculoskeletal Musculoskeletal: Denies myalgias and Denies joint swelling Integumentary/Breasts Skin/Breast: Denies rash Neurologic Neurologic: Denies dizziness, Denies syncope and Denies headache(s) Endocrine Endocrine: Reports fatigue PFSH All Active Problems (Updated 11/26/21 @ 13:30 by Lorenzo Tucker NP) COVID-19 (Acute) Opioid withdrawal (Acute) Bradycardia (Acute) Smoker (Acute) Acute kidney injury (Acute) Discharge planning issues (Acute) DVT prophylaxis (Acute) Opiate or related narcotic overdose (Acute) Aspiration pneumonitis (Acute) Drug abuse (Acute) Hepatitis C virus (Chronic) Social History Smoking/Tobacco Use Status: Current every day Tobacco Type: cigarettes Smoking risk assessment performed?: Yes Alcohol Intake: current Alcohol Intake frequency: 0-2 drinks per day Details: none prior to admission Drug use: Daily Substance use type: marijuana, heroin and prescription drug Do you feel safe at home: Yes Additional Social history: living with a friend in [facility] since being released from corrections in [place] in early December 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 Exam Const General: cooperative, no acute distress, anxious and disheveled Nutritional Appearance: malnourished and thin Orientation: alert, awake and oriented x3 HENMT Mouth: moist mucous membranes Resp Effort & Inspection: normal respiratory effort, able to speak in complete sentences and no respiratory distress Auscultation: clear to auscultation bilaterally Cardio Rate: bradycardic Rhythm: regular rhythm Heart Sounds: S1 normal, S2 normal, no gallops, no murmurs and no rubs Pulses: radial pulses present GI Palpation: soft, no guarding, not rigid and nontender Auscultation: normal bowel sounds Skin General skin exam: no rashes or lesions noted Neuro General: patient alert, patient awake, patient oriented x3, moves all extremities and no focal motor deficits Sensory Exam: no sensory deficits noted Psych Appearance: disheveled Speech and Movement: speech and movement normal Affect: blunted Attitude: cooperative and avoids eye contact Course Vital Signs Vital signs: Vital Signs Temperature 37 C 11/26/21 09:34 Pulse 45 L 11/26/21 09:34 Respiratory Rate 16 11/26/21 09:34 Blood Pressure 158/83 H 11/26/21 09:34 Pulse Oximetry 100 11/26/21 09:34 Temperature 37 C 11/26/21 09:34 Temperature Source Temporal Artery Scan 11/26/21 09:34 Pulse 45 L 11/26/21 09:34 Respiratory Rate 16 11/26/21 09:34 Respiratory Effort Non-Labored 11/26/21 09:37 Blood Pressure 158/83 H 11/26/21 09:34 Blood Pressure Position Supine 11/26/21 09:34 Pulse Oximetry 100 11/26/21 09:34 Oxygen Delivery Method Room Air 11/26/21 09:34 Oxygen Flow Rate 0 11/26/21 09:34
[2021-11-26 10:34] LABS: Source Nasopharynx
[2021-11-26] MEDS: Normal Saline 1,000 ML 1000 ML IV (10:59)
[2021-11-26 11:13] LABS: Influenza A PCR Negative (Negative); Influenza B PCR Negative (Negative); RSV PCR Negative (Negative)
[2021-11-26 11:19] LABS: COVID-19 PCR POSITIVE (Negative)
[2021-11-26 11:19] LABS: Abs Immature Grans 0.03 10^3/uL (0.0-0.06); Absolute Basophil Count 0.01 10^3/uL (0.0-0.2); Absolute Lymphocyte Count 1.21 10^3/uL (1.2-3.4); Absolute Monocyte Count 0.26 10^3/uL (0.1-0.8); Absolute Neutrophil Count 7.39 10^3/uL (1.2-6.7); Basophils % 0.1; HCT 42.5 % (40.0-50.0); HGB 13.4 g/dL (13.5-17.5); Immature Grans % 0.3; Lymphocytes % 13.6; MCH 27.1 pg (27.0-33.0); MCHC 31.5 % (32.0-36.0); MCV 85.9 fL (80-95); Monocytes % 2.9; Neutrophils % 83.1; Nucleated RBC 0 %; Platelet Count 412 10^3/uL (130-400); RBC 4.95 10^6/uL (4.36-5.78); RDW 14.7 % (11.8-14.1); RDW-SD 46.9 fL
[2021-11-26 11:33] LABS: ALT 30 U/L (16-63); AST 26 U/L (15-37); Albumin 3.7 g/dL (3.4-5.0); Alkaline Phosphatase 111 U/L (46-116); Anion Gap 9.5 mmol/L (3-11); BUN 12 mg/dL (7-18); Bilirubin, Total 0.3 mg/dL (0.2-1.0); CO2 27.5 mmol/L (21.0-32.0); CREATININE 0.9 mg/dL (0.70-1.30); Calcium 9.4 mg/dL (8.5-10.1); Chloride 101 mmol/L (98-107); Glucose 169 mg/dL (74-106); Lipase 62 U/L (73-393); Potassium 3.5 mmol/L (3.5-5.1); Sodium 138 mmol/L (136-145); Total Protein 8.9 g/dL (6.4-8.2); Troponin I < 50 ng/L (<or=60)
[2021-11-26 12:28] LABS: FREE T4 1.26 ng/dL (0.76-1.46)
== END 2021-11-26 15:26 | disposition home or self-care (01) ==
PROVIDERS: Emergency Provider Nurse Practitioner Family; PCP Nurse Practitioner Family
DX: U07.1 COVID-19 (principal); F11.23 Opioid dependence with withdrawal; R00.1 Bradycardia, unspecified; F17.210 Nicotine dependence, cigarettes, uncomplicated; Z59.00 Homelessness unspecified
CPT/HCPCS: 36415; 80053; 83690; 87637; 93005; 96360; 99283; 99284; 83735; 84439; 84443; 84484; 85025; 93010

== ENCOUNTER 2021-12-06 02:21 | Outpatient (CLI) | payer MEDICAID, SELFPAY ==
--- NOTE | 2021-12-06 07:45 | RT.EKG_ITS ---
APPROVED REPORT Exam: Resting ECG Reason for Exam: high risk med Patient Location: O HR:64 bpm ECG Measurements Heart Rate 64 AXIS OH 149 P 70 QRSd 94 QRS 79 QT 435 T 70 QTc 450 Conclusion Sinus rhythm...normal P axis, V-rate 60- 99 Normal Electrocardiogram
== END 2021-12-06 02:22 | disposition home or self-care (01) ==
LOC: RT 02:21
PROVIDERS: PCP Nurse Practitioner Family; Visit Provider Family Medicine
DX: Z79.899 Other long term (current) drug therapy (principal)
CPT/HCPCS: 93005; 93010

== ENCOUNTER 2025-07-18 13:45 | Emergency (ER) | payer MEDICAID, SELFPAY ==
[2025-07-18 13:49] VITALS: BP 145/86; PULSE 84; RESP 16; TEMP 36.4; O2SAT 98
--- NOTE | 2025-07-18 13:56 | W.ED.GENAD ---
Discharge Plan Disposition Patient Disposition: Eloped Condition: Stable Discharge Details Clinical Impression: Methadone use Primary Care Provider: Unknown,Unknown ED Provider: Sarita Monteiro Home Meds and New Rx's Prescriptions: No Action methadone 10 mg/5 mL solution 50 mg PO DAILY Discharge Data Discharge Date/Time-TO BE ENTERED AT DEPARTURE: 07/18/25 15:10 HPI General Mode of arrival: ambulatory. Date/Time Provider Initiated Documentation: 07/18/25 13:46. Limitations to Documentation: no limitations. Information obtained by: patient, RN notes reviewed and old records reviewed. HPI Narrative: 39-year-old male presents to the ER with a chief complaint of medication refill. Patient was recently started on methadone which patient reports was 40 mg and 50 mg yesterday. He missed his a.m. dose this morning as he did not realize that the clinic close at 10 AM today. He also states that he did not get his take-home medication for tomorrow which he reports is 60 mg. Related Data Home Medications ?Medication ?Instructions ?Recorded ?Confirmed methadone 10 mg/5 mL oral solution 50 mg PO DAILY 07/18/25 07/18/25 Allergies Allergy/AdvReac Type Severity Reaction Status Date / Time No Known Allergies Allergy Unverified 07/18/25 13:53 General Stated Complaint: RX Refill VIVIANA: 4 Review of Systems Narrative: Patient has no complaints at this time other than need for medication refill or dosing Exam Const General: no acute distress Nutritional Appearance: average body habitus Orientation: alert, awake and oriented x3 Resp Effort & Inspection: normal respiratory effort Course Vital Signs Vital signs: Vital Signs Temperature 36.4 C 07/18/25 13:49 Pulse 84 07/18/25 13:49 Respiratory Rate 16 07/18/25 13:49 Blood Pressure 145/86 H 07/18/25 13:49 Pulse Oximetry 98 07/18/25 13:49 Temperature 36.4 C 07/18/25 13:49 Temperature Source Tympanic 07/18/25 13:49 Pulse 84 07/18/25 13:49 Respiratory Rate 16 07/18/25 13:49 Blood Pressure 145/86 H 07/18/25 13:49 Blood Pressure Position Sitting 07/18/25 13:49 Pulse Oximetry 98 07/18/25 13:49 Oxygen Delivery Method Room Air 07/18/25 13:49 Oxygen Flow Rate 0 07/18/25 13:49 Pain Level 0 07/18/25 13:49 Medical Decision Making 39-year-old male presents to the ER with a chief complaint of medication refill. Patient was recently started on methadone which patient reports was 40 mg and 50 mg yesterday. He missed his a.m. dose this morning as he did not realize that the clinic close at 10 AM today. He also states that he did not get his take-home medication for tomorrow which he reports is 60 mg. 1357: [facility] called to verify methadone dosing, awaiting call back from on-call provider. 1509: [facility] re contacted for dose verification. Patient requesting to leave. 1514: Patient not in room assumed elopement from department. Unable to verify dose as [facility] has not called back. This text was generated using [employer]ico[employer] system, please disregard any oddities of phrase or misspellings. PFSH All Active Problems (Updated 07/18/25 @ 15:15 by Sarita Monteiro NP) Methadone use (Acute) COVID-19 (Acute) Smoker (Acute) Acute kidney injury (Acute) Discharge planning issues (Acute) DVT prophylaxis (Acute) Opiate or related narcotic overdose (Acute) Aspiration pneumonitis (Acute) Drug abuse (Acute) Hepatitis C virus (Chronic) Social History Smoking/Tobacco Use Status: Current every day Tobacco Type: cigarettes Smoking risk assessment performed?: Yes Alcohol Intake: current Alcohol Intake frequency: 0-2 drinks per day Details: none prior to admission Drug use: Daily Substance use type: marijuana, heroin and prescription drug Do you feel safe at home: Yes Additional Social history: living with a friend in [facility] since being released from corrections in [place] in early December 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
== END 2025-07-18 15:10 | disposition left against medical advice (07) ==
PROVIDERS: Emergency Provider Registered Nurse Emergency
DX: F11.90 Opioid use, unspecified, uncomplicated (principal); Z53.20 Procedure and treatment not carried out because of patient's decision for unspecified reasons
CPT/HCPCS: 99283 ×2